=== PATIENT | female | born 1995 | race Caucasian/White ===

== ENCOUNTER 2024-09-19 12:31 | Outpatient (CLI) | payer OTHER, SELFPAY ==
--- OUTSIDE RECORDS SUMMARY | 2024-09-19 12:34 | XMS_ITS | Clinical Summary ---
Author Organization [facility] Address [address] [place] [address] Care Team Providers Care Operator Coating Furnace Name Role Phone Chato Muhammad MD Primary Care Provider [phone] Source Comments [facility],non-owned Affiliates and Associated Physician Practices is amultiple site organization consisting of ambulatory clinics and hospital sitesin [place], [place], [place] and [place]. This disclosure is being madepursuant to the Care Everywhere program and may not contain all information available regarding this patient. Last updated 18.[facility] Allergies No known active allergies Medications * Be aware that medications may not be up to date on this document. Alwaysverify current medications with the patient. hydrocodone-acet aminophen (NORCO) 5-325 MG tablet Take 1 Tab by mouth every 4 hours as needed for Pain. 30 Tab 0 07/09/2013 Active hydrocodone-acet aminophen (NORCO) 5-325 MG tablet Take 1 Tab by mouth every 4 hours as needed for Pain. 30 Tab 0 07/09/2013 Active hydrocodone-acet aminophen (NORCO) 5-325 MG tablet Take 1 Tab by mouth every 4 hours as needed. Active hydrocodone-acet aminophen (NORCO) 5-325 MG tablet Take 1 Tab by mouth every 4 hours as needed for Pain. 30 Tab 0 07/09/2013 Active hydrocodone-acet aminophen (NORCO) 5-325 MG tablet Take 1 Tab by mouth every 4 hours as needed for Pain. 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 Gender Identity Not on file Sexual Orientation Not on file Last Filed Vital Signs Vital Sign Reading Time Taken Comments Blood Pressure 108/65 07/09/2013 4:04 PM HOUSEKEEPING WORKER Pulse 65 07/09/2013 4:04 PM HOUSEKEEPING WORKER Temperature 36.7 C (98 F) 07/09/2013 4:04 PM HOUSEKEEPING WORKER Respiratory Rate 16 07/09/2013 4:04 PM HOUSEKEEPING WORKER Oxygen Saturation 98% 07/09/2013 4:04 PM HOUSEKEEPING WORKER Inhaled Oxygen Concentration - - Weight 52.6 kg (116 lb) 07/09/2013 9:38 AM HOUSEKEEPING WORKER Height 160 cm (5' 3 ) 07/09/2013 9:38 AM HOUSEKEEPING WORKER Body Mass Index 20.55 07/09/2013 9:38 AM HOUSEKEEPING WORKER Plan of Treatment Health Maintenance Due Date Last Done Comments HIV SCREENING 2012 HPV VACCINE (1 - 3-dose series) 2012 HEPATITIS C SCREENING 11/29/2015 DTAP/TDAP/TD VACCINES (1 - Tdap) 2016 HEPATITIS B VACCINE (1 of 3 - 19+ 3-dose series) 2016 COVID-19 VACCINE (1 - 2023-2 5 season) 2024 DEPRESSION SCREENING 05/09/2024 INFLUENZA VACCINE (Season Ended) 2025 ZOSTER VACCINE (1 of 2) 12/04/2047 HIB VACCINE Aged Out No longer eligi ble based on patient's age to complete this topic MENINGOCOCCAL (Group B) VACC INE SHARED DECISION-MAKING Aged Out No longer eligibl e based on patient's age to complete this topic MENINGOCOCCAL GROUPS A/C/Y/W VACCINE Aged Out No longer eligible b ased on patient's age to complete this topic PNEUMOCOCCAL VACCINE Aged Out No long er eligible based on patient's age to complete this topic Insurance [employer]ICA[employer] [facility] Member Subscriber Plan / Payer (Ef fective for All Dates) Name:Joanna Hrenadez Member ID:Not on file Relation to Subscriber:Child Name:JOANNA HERNADEZ Date of :1967 (Home) [address]: [address] [place] [id number] Payer ID:Not on file Group ID:Not on file Type:O Address: [facility] [address] [place] [address] Care Teams Operator Coating Furnace Relationship Specialty Start Date End Date Chato Muhammad MD [address] [place] [address] PCP - General Family Medicine 12/20/16
--- OUTSIDE RECORDS SUMMARY | 2024-09-19 12:34 | XMS_ITS | Continuity of Care Document ---
Author Organization [facility] Address [address] [place] [address] Phone Care Team Providers Care Instant Print Operator Name Role Phone Dani Farrell PA-C Unavailable Unavailable Allergies, Adverse Reactions, Alerts Substance Reaction Status Criticality No Known allergies Procedures Procedure Date OFFICE/OUTPATIENT VISIT NEW POSTOP FOLLOW-UP VISIT OFFICE/OUTPATIENT VISIT NEW Advance Directives Directive Yes / No Effective Date File Name No Information Encounters Encounter Description Practice Location Reason(s) For Visit Diagnoses Date Provider Providers Copied on Encounter OFFICE/OUTPAT IENT VISIT [facility], [address], [address], tel:[phone] [facility] Cubital tunnel syndrome on right [address], [place], [place], [id number] , [place]. tel: [phone] [facility], [address], [place], [address], [place] tel:[phone] [facility] Cubital tunnel syndrome on right [address], [place], [place], [id number] , [place]. tel: [phone] OFFICE/OUTPAT IENT VISIT [facility], [address], [place], [address], tel:[phone] [facility] Cubital tunnel syndrome on right [address], [place], [place], [id number] , [place]. tel: [phone] Referring Provider: Thong Du[address], [place], [address]. tel:[phone] Family History Family Member Type Diagnosis Age At Onset No Information Payers Payer name Insurance type Covered constitution party ID Authoriza tion(s) No Information Social History Type Description Quantity Date Captured Comments Sex Female Smoking Status No Information Chief Complaint And Reason For Visit No Information Reason For Referral Reason For Referral No Information History Of Present Illness Encounter Date Complaint History Of Prese nt Illness No Information Functional Status Date Functional Assessmen t No Information Instructions Date Instruction Additional Infor antwon Physical activity counseling Rel ated to Dietary Surveillance Counseling Physical activity counseling Rel ated to Dietary Surveillance Counseling Assessments Type Assessment Date No Information Patient Care Teams Name Effective Dates (start - stop) Status Members No Information
--- OUTSIDE RECORDS SUMMARY | 2024-09-19 12:34 | XMS_ITS | Data Portability ---
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 Discussed nature/benefits/ alternatives/and risks of SSRIs including worsening mood/SI, weight gain, CORTES, nausea, failure, need for dose adjustment, withdrawal. Start sertraline. F/u in 4-5 weeks, sooner if problems. She is also going to explore her insurance counseling benefits. Patient voices understanding and agreement with the plan. [email or web address] Not available 06/19/2024 10:32:05 09/10/2024 09/10/2024 Joanna is likely experiencing PVCs based on her description of palpitations. We will arrange a Holter mx to confirm and evaluate frequency. Patient voices understanding and agreement with the plan. [email or web address] Not available 09/10/2024 19:04:17 Plan of Treatment Reminders Order Date Submit Date Provider Last Modified By Organization Details Last Modified Time Details Appointments Establish ed Patient 40.EST 2024 05:20P M Kinga Obrien Not available Not available Not available Lab None recorded. Referral None recorded. Procedures None recorded. Surgeries None recorded. Imaging None recorded. Medication Orders sertralin e 25 mg tablet 2024 025 [facility], [facility] [place], [address], 07/16/2024 19:04:26 sertralin e 25 mg tablet 2024 025 [facility], [address], , [address], 06/18/2024 18:51:52 Patient TargetsNo targets recorded. Patient InstructionsNo instructions recorded. Reason for Referral None Reported. 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 Pelvic US c/w such, but cannot confirm bicorn' vs septate. MICHAEL referral if / when pt deisres (to discuss further / consider MRI) Kinga Obrien APRN, SECURITY INTERN [address] [place] [address], [phone], [facility] 5 18:37:35 Weight increased 619593681 Active 2024 likely 2/2 calorie excess vs expenditur e. NmL TSH. Plan increase exercise intensity & calorie counting. Success w/ Weight Watchers 2019. Kinga Obrien APRN, SECURITY INTERN [address] [place] [address], [phone], [facility] 5 18:38:05 Contracept ion care management Active OCPs Chato Bullock MD [address] [place] [address], [phone], [facility] 5 08:37:40 Anxiety 52301953 Active 2024 probable mild SULEMA since childhood, exacerbate d in mid 20s. start sertraline w / excellent response. Kinga Obrien APRN, SECURITY INTERN [address] [place] [address], [phone], [facility] 5 19:16:46 Palpitatio ns 51912672 Active 2024 Kinga Angélica Obrien, ICE RINK ATTENDANT, SECURITY INTERN [address] [place] [address], [phone] [place] [address] 5 19:04:22 Problem Notes None recorded. Medical Equipment None Reported. Allergies Allergen ID Allergen Name Allergen Category Reaction Reaction Severity Criticality Documentation Date Start Date Code Code System Note Provider Name and Address Organization Details Recorded Time 673183 Antigen of Neisseria meningiti dis (substanc e) medicatio n hives Not available Not available 06/06/20232015 66061 7002 SNOMED React ion: Hives ; Comme nt: React ion Date: 08 Dec 2015 ; Not Available [facility] 4 23:38:11 Medications Name Sig Start Date Stop Date Status Note LastModified by Organization Details LastModified Time cetirizine 10 mg tablet Take 1 tablet every day by oral route. active Not Available Not Available No t Available sertraline 25 mg tablet Take 1 tablet every day by oral route. 025 active Not Available Not Available Not Avai lable Tri-Sprintec (28) 1 daily active Not Available Not Available Not Available Vitals Date Recorded Body weight Body temperature Heart rate Oxygen saturation Oxygen saturation in Arterial blood by Pulse oximetry Systolic blood pressure Diastolic blood pressure Provider Name and Address Organization Details Last Updated DateTime 5 45648.4 g 98.4 [degF] 72 /min 99 % 99 % 126 mm[Hg] 86 mm[Hg] [facility] 5 18:36:03 Date Recorded Body weight Body temperature Heart rate Oxygen saturation Oxygen saturation in Arterial blood by Pulse oximetry Systolic blood pressure Diastolic blood pressure Provider Name and Address Organization Details Last Updated DateTime 5 51349.0 3 g 98.6 [degF] 64 /min 99 % 99 % 118 mm[Hg] 84 mm[Hg] [facility] 5 18:35:19 Date Recorded Body weight Body temperature Heart rate Oxygen saturation Oxygen saturation in Arterial blood by Pulse oximetry Systolic blood pressure Diastolic blood pressure Provider Name and Address Organization Details Last Updated DateTime 5 39474.6 2 g 98.3 [degF] 75 /min 94 % 94 % 126 mm[Hg] 88 mm[Hg] Marta Hu [facility] 5 18:52:39 Social History None recorded. Functional Status None recorded. Mental Status None recorded. Family History Nothing Reported. Medical History No medical history recorded. Gynecological HistoryNo gynecological history recorded. Obstetrics History GPAL:G 0 P 0 0 0 0 Immunizations Vaccine Type Date Status Note Provider Nam e and Address Organization Details Recorded Time meningococcal B, recombinant 6 completed Marta Hu [facility] 06/18/2024 18:30:41 COVID-19, mRNA, LNP-S, PF, 30 mcg/0.3 mL dose 1 completed Martajosselyn Hu [facility] 06/18/2024 18:30:41 COVID-19, mRNA, LNP-S, PF, 30 mcg/0.3 mL dose 1 completed Marta Hu [facility] 06/18/2024 18:30:41 HPV, unspecified formulation 1 completed Martajosselyn Hu [facility] 06/18/2024 18:30:41 Influenza, split virus, trivalent, PF 4 completed Marta Hu [facility] 06/18/2024 18:30:41 Novel [id number] 9 completed Marta Hu [facility] 06/18/2024 18:30:41 HPV, quadrivalent 1 completed Marta Hu [facility] 06/18/2024 18:30:41 HPV, quadrivalent 1 completed Martajosselyn Hu [facility] 06/18/2024 18:30:41 meningococcal [id number] 5 completed Martajosselyn Hu [facility] 06/18/2024 18:30:41 Influenza, split virus, quadrivalent, PF 8 completed Marta Hu [facility] 06/18/2024 18:30:41 Past Encounters Encounter ID Performer Location Encounter Start Date Encounter Closed Date Diagnosis/Indication Diagnosis SNOMED-CT Code Diagnosis ICD10 Code Diagnosis Note [id number] Kinga Obrien APRN, BERYL [facility] ([place]) [facility] [place] [address] 06/18/2024 18:21:35 06/20/2024 05:20:31 Anxiety 90981480 F41.9 [id number] Kinga Obrien APRN, BERYL [facility]) [address] [place] [address] 07/16/2024 18:05:40 07/17/2024 07:24:31 Anxiety 86267238 F41.9 Excellent response to sertraline . F/u in 6 mo, sooner if needed. Preventive procedure 169 062490 Z00.00 Pap not due until next year. She declines STI screening. She had a flu shot this year. Discussed age appropriat e preventati ve education including avoidance of nicotine/d rugs/alcoh ol, , sun screen, healthy diet, exercise. She is pleased w/ COCs for contracept ion. F/u for wellness visit in 1 yr. [id number] Kinga Obrien APRN, BERYL [facility]) [facility] [place] [address] 09/10/2024 18:37:13 09/11/2024 08:16:55 Palpitations 46047808 R00.2 Health Concerns Section Related Observation LastModified by Organization Detai ls LastModified Time None Recorded Concern Status LastModified by Organization Details LastModified Time None Recorded Advance Directives Directive None Recorded Payers Insurance Date Sequence Insurance Name Policy Number Policy Koenig Covered Member ID Koenig Member ID Guarantor Name 09/06/2024 1 [facility] [id number] Joanna Hernadez [id number] Joanna Hernadez Notes Date Note Type Note Provider Name and Address Organization Details Recorded Time 06/18/2024 text/html Discuss stress-Joanna thinks she has had anxiety for years, since childhood. She has learned to manage it. Now she is under more stress at work, has some stressful family dynamics and is feeling overwhelmed. With these added stressors, her anxiety symptoms have become less manageable. I just want to feel calm -no SI/HI Kinga Obrien APRN, SECURITY INTERN [address] [place] [address], [phone], [facility] 06/19/2024 10:32:54 07/16/2024 text/html [facility] visit/Follow up-doing well overall-exercises regularly-avoids tobacco, alcohol-wears seat belts Anxiety-Joanna is so pleased with response to sertraline.-she is feeling much better. She has not cried for weeks. She is able to be surrounded by difficult situations without internalizing them like she had been-no adverse effects noted. She does not think she needs to increase the dose. Kinga Obrien APRN, SECURITY INTERN [address] [place] [address], [phone], [facility] 07/16/2024 19:19:18 09/10/2024 text/html Heart Palpitatio ns- intermittent feeling of skipping a beat started about a month ago.- 2 weeks ago started more frequently, especially when laying down- decreased caffeine intake with no improvement- Denies anxiousness, chest pain and SOB Kinga Obrien APRN, SECURITY INTERN [address] [place] [address], [phone], [facility] 09/10/2024 19:15:45 OBGyn Episode No OBEpisode recorded.
--- OUTSIDE RECORDS SUMMARY | 2024-09-19 12:34 | XMS_ITS | Clinical Summary ---
Author Organization [facility] Address [facility] [place] [address] Care Team Providers Care Saw Boss Name Role Phone Chato Muhammad MD Primary Care Provider [phone] Allergies No known active allergies Medications TRI FEMYNOR 0.18/0.215/0.25 MG-35 MCG tablet Take 1 tablet by mouth daily. 11/01/2018 Active azithromycin (ZITHROMAX Z-BRIGETTE) 250 MG tabletIndicatio ns:Acute non-recurrent frontal sinusitis,Acute non-recurrent maxillary sinusitis Take 2 tablets by mouth on day one then 1 daily for four days. 6 tablet 04/25/2019 Active Social History Tobacco Use Types Packs/Day Years Used Date Smoking Tobacco: Never Smokeless Tobacco: Never Comments No Sex and Gender Information Value Date Recorded Sex Assigned at Not on file Legal Sex Female 5:55 PM DEVELOPMENT TRAINER Gender Identity Not on file Sexual Orientation Not on file Last Filed Vital Signs Vital Sign Reading Time Taken Comments Blood Pressure 100/68 04/25/2019 5:04 PM DEVELOPMENT TRAINER Pulse 110 04/25/2019 5:04 PM DEVELOPMENT TRAINER Temperature 37.3 C (99.1 F) 04/25/2019 5:04 PM DEVELOPMENT TRAINER Respiratory Rate 18 04/25/2019 5:04 PM DEVELOPMENT TRAINER Oxygen Saturation 98% 04/25/2019 5:04 PM DEVELOPMENT TRAINER Inhaled Oxygen Concentration - - Weight 78.3 kg (172 lb 9.6 oz) 04/25/2019 5:04 P M DEVELOPMENT TRAINER Height 162.6 cm (5' 4 ) 04/25/2019 5:04 PM DEVELOPMENT TRAINER Body Mass Index 29.63 04/25/2019 5:04 PM DEVELOPMENT TRAINER Plan of Treatment Health Maintenance Due Date Last Done Comments Cervical Cancer Screening Pa p Smear (Age 21 to 29) Every 3 Years 1997 Cervical Cancer Screening 1997 Annual Physical 2000 HPV Vaccines (1 - 3-dose series) 2012 Hepatitis C 12/04/2015 DTaP, Tdap and Td Vaccines ( 1 - Tdap) 2016 Hepatitis B Vaccines (1 of 3 - 19+ 3-dose series) 2016 COVID-19 Vaccine (1 - 2023-2 5 season) 2024 Meningococcal B Vaccine Aged Out No l onger eligible based on patient's age to complete this topic Meningococcal Vaccine Aged Out No caitie shirley eligible based on patient's age to complete this topic Pneumococcal Vaccine: Pediat rics (0 to 5 Years) and At-Risk Patients (6 to 49 Years) Aged Out No longer eligible b ased on patient's age to complete this topic RSV Immunizations Under 20 Months Aged Out No longer eligible based on patient's age to complete this topic [place] [address] [place] [address] Care Teams Saw Boss Relationship Specialty Start Date End Date Chato Muhammad MD [address] [place] [id number] PCP - General FAMILY PRACTICE 04/25/19
--- NOTE | 2024-10-02 12:28 | WPDHOLTEREM ---
Holter/Event Monitor Holter/Event Monitor Date of procedure: 09/19/24 Holter/Event Procedure: 3-7 Day Holter Monitor Indications: Palpitations Conclusion: 1. 3 days holter monitor on 09/19/24. 2. Underlying rhythm is sinus rhythm. HR range 42-166 bpm; average HR 76 bpm. HR at 42 bpm was on 09/22/24 at 4:08 am. HR at 166 bpm was on 09/19/24 at 4:20 pm. 3. There are rare premature supraventricular complexes and rare supraventricular couplets. No supraventricular tachycardia. 4. There are rare premature ventricular complexes and rare ventricular couplets. No ventricular tachycardia. 5. No significant pauses greater than 3 seconds. 6. Patient reports 12 episodes of symptoms of heart racing, irregular beats, beating hard, lightheadedness, shortness of breath which demonstrate sinus rhythm, HR range 61-85 with 5 episodes with PVC's.
== END 2024-09-19 12:32 | disposition home or self-care (01) ==
DX: R00.2 Palpitations (principal)
CPT/HCPCS: 93242